=== PATIENT | female | born 1965 | race Caucasian/White ===

== ENCOUNTER 2019-09-15 18:30 | Observation (INO) ==
[2019-09-15] MEDS ORDERED: Haloperidol Lactate 5 MG/ML VIAL IVP ONE (19:38)
[2019-09-15] MEDS ORDERED: *HR* LORazepam 2 MG/ML VIAL IVP ONE ×3 (19:38→23:08)
[2019-09-15] MEDS ORDERED: 0.9 % Sodium Chloride 1,000 ML IV ONE (19:39)
[2019-09-15 20:31] LABS: Basophils # 0.1 K/mcL (0.0-0.2); Basophils % 0.4 %; Eosinophils % 0.1 %; Hemoglobin 14.2 g/dL (11.5-15.4); Immature Granulocytes % 0.5 % (0-4); Lymphocytes # 2.4 K/mcL (0.6-4.6); Lymphocytes % 17.6 %; Mean Corpuscular HGB Conc 33.8 g/dL (31.6-35.5); Mean Corpuscular Hemoglobin 31.7 pg (28.0-33.3); Mean Corpuscular Volume 93.8 fL (83.0-100.0); Monocytes # 1.2 K/mcL (0.0-1.3); Neutrophils # 9.9 K/mcL (1.6-8.9); Platelet Count 307 K/mcL (140-400); Red Blood Count 4.48 M/mcL (3.82-4.97); Red Cell Distribution Width 12.2 % (11.5-14.5); Segmented Neutrophils % 72.4 %; White Blood Count 13.7 K/mcL (4.3-11.1)
[2019-09-15 20:52] LABS: Acetaminophen < 10 mcg/mL (10-20); Alanine Aminotransferase 13 Units/L (7-52); Albumin 5.1 g/dL (3.5-5.7); Albumin/Globulin Ratio 2.1 (1.1-2.2); Alkaline Phosphatase 79 Units/L (34-104); Aspartate Amino Transferase 19 Units/L (13-39); BUN/Creatinine Ratio 6 (6-26); Bilirubin,Direct 0.1 mg/dL (0.0-0.2); Bilirubin,Indirect 0.3 mg/dL (0.0-1.0); Bilirubin,Total 0.4 mg/dL (0.3-1.0); Blood Urea Nitrogen 5 mg/dL (6-20); Calcium 10.5 mg/dL (8.6-10.3); Carbon Dioxide 28 mEq/L (23-29); Chloride 101 mEq/L (98-107); Chol/HDL Ratio 2.2 (0-4.9); Cholesterol 201 mg/dL (< 200); Ethanol < 10 mg/dL (Less than 10); Globulin 2.4 g/dL (2.4-3.5); Glucose 123 mg/dL (70-105); HDL Cholesterol 93 mg/dL (40-59); LDL Cholesterol,Calculated 97 mg/dL (0-99); Osmolality,Calculated 283 (280-300); Potassium 3.5 mEq/L (3.5-5.1); Salicylate < 2.5 mg/dL (15.0-30.0); Sodium 137 mEq/L (136-145); Total Protein 7.5 g/dL (6.4-8.9); Triglycerides 57 mg/dL (< 150); eGFR For African Americans > 60 (> 60); eGFR For Non-African Americans > 60 (> 60)
[2019-09-15] MEDS: Aspirin 325 MG TABLET PO ONE ×2 (21:10→21:22)
[2019-09-15 21:14] LABS: Estimated Average Glucose 105 mg/dl
[2019-09-15] MEDS ORDERED: Azithromycin 250 MG TABLET PO ONE (22:25)
[2019-09-15 22:33] LABS: Clarity,Urine Clear (Clear); Color,Urine Yellow (Yellow); Glucose,Urine (UA) Normal (Normal)
[2019-09-15 22:34] LABS: Bilirubin,Urine Negative (Negative); Blood,Urine Negative (Negative); Ketones,Urine Negative (Negative); Leukocyte Esterase,Urine Trace (Negative); Nitrite,Urine Negative (Negative); Protein,Urine Negative (Neg-Trace); Specific Gravity,Urine 1.008 (1.010-1.025); Urobilinogen,Urine Normal (Normal)
[2019-09-15 22:35] LABS: Amphetamine Screen,Urine Positive ng/mL (Cutoff=1000); Barbiturate Screen,Urine Negative ng/mL (Cutoff=200); Benzodiazepines Screen,Urine Negative ng/mL (Cutoff=200); Cannabinoid Screen,Urine Positive ng/mL (Cutoff = 50); Cocaine Screen,Urine Negative ng/mL (Cutoff= 300); Opiate Screen,Urine Negative ng/mL (Cutoff=300); Phencyclidine Screen,Urine Negative ng/mL (Cutoff=25)
[2019-09-15 22:47] LABS: RBC,Urine 0-3 per hpf (0-3)
[2019-09-16] MEDS ORDERED: *HR* LORazepam 2 MG/ML VIAL IM PRN (00:47)
[2019-09-16] MEDS ORDERED: Haloperidol Lactate 5 MG/ML VIAL IM PRN (00:47)
[2019-09-16] MEDS ORDERED: Acetaminophen 325 MG TABLET PO PRN (00:47)
[2019-09-16] MEDS ORDERED: *HR* LORazepam 1 MG TABLET PO PRN (00:47)
[2019-09-16] MEDS ORDERED: Mag Hydrox/Al Hydrox/Simeth 30 ML UDC PO PRN (00:47)
[2019-09-16] MEDS ORDERED: MOM Conc 10 ML UD.LIQ PO PRN (00:47)
[2019-09-16] MEDS ORDERED: haloperidoL 5 MG TABLET PO PRN (00:47)
[2019-09-16] MEDS: hydrOXYzine pamoate 25 MG CAPSULE PO PRN ×2 (02:27→21:07)
[2019-09-16] MEDS: traZODone 50 MG TABLET PO PRN ×2 (02:27→21:07)
[2019-09-16] MEDS ORDERED: Azithromycin 250 MG TABLET PO ONE (09:00)
[2019-09-16] MEDS ORDERED: diazePAM 10 MG TABLET PO ONE (13:47)
[2019-09-16] MEDS ORDERED: Nitroglycerin 0.4 MG TAB.SUBL SL PRN (15:42)
[2019-09-16] MEDS ORDERED: Ziprasidone 20 MG in Water for inj. (sterile) 1 ML IM PRN (15:43)
[2019-09-16] MEDS: diazePAM 10 MG TABLET PO SCH (21:07)
[2019-09-16] MEDS: Nicotine 21 MG PATCH.TD24 TD SCH (21:20)
[2019-09-17] MEDS: Nicotine 21 MG PATCH.TD24 TD SCH (11:02)
[2019-09-17] MEDS: diazePAM 10 MG TABLET PO SCH ×3 (11:03→20:52)
[2019-09-17] MEDS: Azithromycin 250 MG TABLET PO SCH (11:03)
[2019-09-17] MEDS: traZODone 50 MG TABLET PO PRN (20:52)
[2019-09-18] MEDS: Nicotine 21 MG PATCH.TD24 TD SCH (08:50)
[2019-09-18] MEDS: Azithromycin 250 MG TABLET PO SCH (08:51)
[2019-09-18] MEDS: diazePAM 10 MG TABLET PO SCH ×3 (08:51→20:18)
[2019-09-18] MEDS ORDERED: Saline Nasal Spray 44 ML BOTTLE NS PRN (11:14)
[2019-09-18] MEDS: hydrOXYzine pamoate 25 MG CAPSULE PO PRN (14:26)
[2019-09-18] MEDS: traZODone 50 MG TABLET PO PRN (20:18)
[2019-09-19] MEDS: Azithromycin 250 MG TABLET PO SCH (09:01)
[2019-09-19] MEDS: Nicotine 21 MG PATCH.TD24 TD SCH (09:01)
[2019-09-19] MEDS: diazePAM 10 MG TABLET PO SCH ×3 (09:01→20:10)
[2019-09-19] MEDS: hydrOXYzine pamoate 25 MG CAPSULE PO PRN (20:10)
[2019-09-19] MEDS: traZODone 50 MG TABLET PO PRN (20:10)
[2019-09-20] MEDS: diazePAM 10 MG TABLET PO SCH ×3 (08:42→20:18)
[2019-09-20] MEDS: Nicotine 21 MG PATCH.TD24 TD SCH (08:42)
[2019-09-20] MEDS: Azithromycin 250 MG TABLET PO SCH (08:42)
[2019-09-20] MEDS: traZODone 50 MG TABLET PO PRN (20:18)
[2019-09-20] MEDS: hydrOXYzine pamoate 25 MG CAPSULE PO PRN (20:18)
[2019-09-20] MEDS ORDERED: *HR* LORazepam 1 MG TABLET PO ONE (23:15)
[2019-09-21] MEDS: Nicotine 21 MG PATCH.TD24 TD SCH (09:08)
[2019-09-21] MEDS: diazePAM 10 MG TABLET PO SCH (09:08)
[2019-09-21 09:33] VITALS: BP 108/79
== END 2019-09-21 13:35 | disposition home or self-care (01) ==
LOC: EMEROOARM 18:30 → 1ANU 18:30 → SUATTDRO 09-16 00:44 → 1ANU 09-16 02:13
PROVIDERS: ADMIT Psychiatry & Neurology Psychiatry; ATTEND Psychiatry & Neurology Forensic Psychiatry